=== PATIENT | female | born 1930 | race Caucasian/White ===

== ENCOUNTER 2016-05-13 09:52 | Emergency (ER) | payer MEDICARE ==
--- NOTE | 2016-05-13 10:04 | ER Document Report ---
ED Medical Screen (RME) - General Stated Complaint: FOOT SWELLING Mode of Arrival: Ambulatory Information source: Patient Notes: Patient reports hitting her left lower leg additional washer several days ago. Patient left foot swelling and ecchymosis. Patient does take eliquis hx: Hypertension I have greeted and performed a rapid initial assessment of this patient. A comprehensive ED assessment and evaluation of the patient, analysis of test results and completion of the medical decision making process will be conducted by additional ED providers. Physical Exam - Vital signs Vitals: Temp Pulse Resp BP Pulse Ox 98.5 F 109 H 18 160/86 H 97 05/13/16 09:59 05/13/16 09:59 05/13/16 09:59 05/13/16 09:59 05/13/16 09:59 - Extremities General lower extremity: Edema - Swelling to left foot with ecchymosis Course - Vital Signs Vital signs: Temp Pulse Resp BP Pulse Ox 98.5 F 109 H 18 160/86 H 97 05/13/16 09:59 05/13/16 09:59 05/13/16 09:59 05/13/16 09:59 05/13/16 09:59
--- NOTE | 2016-05-13 11:36 | ER Document Report ---
ED General - General Chief Complaint: Feet Swelling Stated Complaint: FOOT SWELLING Time seen by provider: 11:20 Mode of Arrival: Ambulatory Information source: Patient Notes: 85-year-old female struck her left lower leg against an open tool marker door 3 days ago. She reports the was no break in the skin but she had considerable soft tissue swelling in the area initially. She reports the swelling that areas gone down but she has developed increasing swelling and bruising involving the lower leg ankle and foot. When her daughter saw the degree of bruising in her foot today she assisted patient in the emergency department for evaluation. The patient has been ambulatory without difficulty says she has essentially no pain anywhere in the left lower extremity now. He reports ambulation and weightbearing did not worsen pain. She reports that the swelling and bruising in her left leg and foot seem to be worse after she's been up walking on it for several hours. He reports being on Eliquis for atrial fibrillation. She reports being in normal state of health otherwise recently Physical Exam: General: Alert, appears well. HEENT: Normocephalic. Atraumatic. PERRLA. Extraocular movements intact. Oropharynx clear. Neck: Supple. Non-tender. Respiratory: No respiratory distress. Clear and equal breath sounds bilaterally. Cardiovascular: Regular rate and rhythm. Abdominal: Normal Inspection. Soft, non-tender. No distension. Normal Bowel Sounds. Back: Non-tender. No deformity or step off. Extremities upper extremities warm to plus pulses no cyanosis no edema Right lower extremity has 2+ edema from mid calf to toes. Left lower extremity has 3+ edema from mid calf to toes with prominent ecchymosis diffusely throughout the ankle and foot. There is slight thinning of the skin over the mid shaft of the left lower leg but there is no break in the skin. There is no induration or warmth crepitance or fluctuance to suggest infection in the area. No palpable cords are present. Patient has 2+ dorsalis pedis and posterior tibial pulses bilaterally Neurological: Speech clear mentation normal moves all extremities well Psychological: Normal affect. Normal Mood. Skin: Warm. Dry. Normal color. TRAVEL OUTSIDE OF THE [place] IN LAST 30 DAYS: No - Related Data Allergies/Adverse Reactions: No Known Drug Allergies Allergy (Verified 05/13/16 10:06) Past Medical History - General Information source: Patient - Social History Smoking Status: Never Smoker Family History: Other - Brother with pacemaker Patient has suicidal ideation: No Patient has homicidal ideation: No - Past Medical History Cardiac Medical History: Reports: Hx Atrial Fibrillation, Hx Hypertension Renal/ Medical History: Denies: Hx Peritoneal Dialysis Past Surgical History: Reports: Hx Abdominal Surgery - HERNIA Review of Systems - Review of Systems Constitutional: denies: Chills, Fever EENT: denies: Ear pain, Throat pain Cardiovascular: denies: Chest pain, Dyspnea, Syncope Respiratory: denies: Cough, Short of breath Gastrointestinal: denies: Abdominal pain, Nausea, Vomiting Genitourinary: denies: Burning, Dysuria Female Genitourinary: denies: Musculoskeletal: denies: Back pain Skin: See HPI Hematologic/Lymphatic: See HPI Neurological/Psychological: denies: Weakness, Numbness Physical Exam - Vital signs Vitals: Temp Pulse Resp BP Pulse Ox 98.5 F 109 H 18 160/86 H 97 05/13/16 09:59 05/13/16 09:59 05/13/16 09:59 05/13/16 09:59 05/13/16 09:59 Course - Re-evaluation Re-evalutation: 05/13/16 11:37 X-rays are negative for fracture. The patient's bruising represents bruise from the initial injury that is tracking along the subcutaneous edema in a dependent fashion. Given the fact that she is clearly adequately anticoagulated there is no need for Doppler study to evaluate for DVT and she has strong peripheral pulses and brisk capillary refill so there is no need for arterial Doppler study. Patient daughter are reassured that this should clear without further intervention and have instructed her to continue taking her [facility]. His physician in [place] where she will be returning next month and she is instructed to follow with them or return to emergency department for further problems - Vital Signs Vital signs: Temp Pulse Resp BP Pulse Ox 98.5 F 109 H 18 160/86 H 97 05/13/16 09:59 05/13/16 09:59 05/13/16 09:59 05/13/16 09:59 05/13/16 09:59 - Diagnostic Test Radiology reviewed: Image reviewed, Reports reviewed Discharge - Discharge Clinical Impression: Contusion Qualifiers: Encounter type: initial encounter Contusion area: lower leg Laterality: left Qualified Code(s): S80.12XA - Contusion of left lower leg, initial encounter Condition: Stable Disposition: HOME, SELF-CARE Additional Instructions: Contusion Your injury has resulted in a contusion -- a crushing of the deep tissues. No injury to important structures was detected during the physician's exam. Contusions vary in the amount of pain they cause, and in the length of time required for healing. Typically, the area will become bruised, and will remain painful to touch for two or three weeks. However, most patients are back to working and playing within a few days. After the initial period of rest and cold-packs, your symptoms (together with the doctor's recommendations) will determine how rapidly you can get back to full activity. Usually this means "do what feels okay, but don't do things that hurt." If re-examination was recommended, it's important to follow up as instructed. Call the doctor or return any time if pain increases, if swelling becomes severe, if you develop numbness or weakness in an injured extremity, or if any other alarming symptoms occur. Continue taking your blood thinner. The bruising should clear but this may take several weeks. See your doctor when you return home. Return to emergency Department for worse pain or other problems
[2016-05-13 12:26] VITALS: BP 149/95
== END 2016-05-13 11:44 | disposition home or self-care (01) ==
LOC: ER 09:52
DX: S80.12XA Contusion of left lower leg, initial encounter (principal); S90.02XA Contusion of left ankle, initial encounter; S90.31XA Contusion of right foot, initial encounter; W22.09XA Striking against other stationary object, initial encounter; I10 Essential (primary) hypertension
CPT/HCPCS: 99283